=== PATIENT | female | born 1960 | race Caucasian/White ===

== ENCOUNTER 2020-04-06 08:10 | Emergency (ER) | payer MEDICARE ==
[~2020-04-06] VITALS: Ht 162.6 cm; Wt 86.5 kg
[~2020-04-06 08:10] MED LIST: AMLO5TAB4 PO; CLON1TAB11 PO; GABA800T5 PO; INSU100I11 SQ; INSU100V8 SQ; LEVO150T PO; LISI40TA PO; MIRT45TA57 PO; PARO40TA61 PO; ROSU40TA PO
[2020-04-06 09:12] LABS: MEAN CORPUSCULAR HGB CONC 34.1 g/dL (32.4-35.8); MEAN PLATELET VOLUME 8.9 fL (7.4-10.4); PLATELET COUNT 213 x10^3/uL (130-400); RED BLOOD COUNT 3.47 x10^6/uL (3.82-5.3); RED CELL DISTRIBUTION WIDTH 13.6 % (9.6-15.2)
[2020-04-06 09:21] LABS: INTERNATIONAL NORMALIZED RATIO 0.89 (0.93-1.1); PROTHROMBIN TIME 9.4 Seconds (9.6-11.5)
[2020-04-06 09:22] LABS: ALANINE AMINOTRANSFERASE 14 U/L (12-78); ALBUMIN 3.2 g/dL (3.4-5.0); ANION GAP 5 mmol/L (5-15); CALCIUM 10.3 mg/dL (8.5-10.1); CHLORIDE 114 mmol/L (98-107); CREATININE 2.08 mg/dL (0.55-1.02)
[2020-04-06 09:24] LABS: ALKALINE PHOSPHATASE 149 U/L (45-117); BILIRUBIN,TOTAL 0.2 mg/dL (0.2-1.0); TOTAL PROTEIN 6.7 g/dL (6.4-8.2)
[2020-04-06 09:46] LABS: MD YES
[2020-04-06 09:52] LABS: <PLATELET ESTIMATE> ADEQUATE; <PLT MORPHOLOGY> NORMAL PLT MORPH; <RBC MORPHOLOGY> NORMAL; BAND#(MANUAL) 0.06 x10^3/uL; BANDS%(MANUAL) 1 % (0-7); BASOS#(MANUAL) 0.06 x10^3/uL (0-0.1); BASOS% (MANUAL) 1 % (0-1); EOS#(MANUAL) 0.18 x10^3/uL (0.0-0.4); EOS% (MANUAL) 3 % (1-7); LYMPH#(MANUAL) 0.94 x10^3/uL (1-3.4); LYMPHS% (MANUAL) 16 % (22-44); MONOS% (MANUAL) 5 % (2-9); SEG#(MANUAL) 4.37 x10^3/uL (1.8-6.8); SEGS% (MANUAL) 74 % (42-75)
--- NOTE | 2020-04-06 10:45 | NUR ---
Late entry summary note: Pt reports aphasia and dropping things due to right sided weakness on Wednesday. Pt was not seen on Wednesday for this. Reports "today's my best day" since Wednesday, she comes to the ER today because symptoms haven't resolved. Pt reports right upper extremity numbness/ tingling. Righ sided weakness noted on exam. Pt passed RN bedside swallow eval. Pt connected to all monitors. NADN, call light in reach.
[2020-04-06] MEDS ORDERED: ASPIRIN 325 MG TABLET PO STA (10:48)
--- NOTE | 2020-04-06 10:55 | NUR ---
Pt ambulatory to bathroom with steady gait.
[2020-04-06] MEDS ORDERED: ASPIRIN 325 MG TABLET ONE (10:57)
[2020-04-06] MEDS ORDERED: ACETAMINOPHEN 325 MG TABLET PO PRN (11:30)
[2020-04-06] MEDS ORDERED: ONDANSETRON 2MG/ML, 2ML IVPush PRN (11:30)
[2020-04-06] MEDS ORDERED: CYCLOBENZAPRINE 10 MG TABLET PO PRN (11:30)
[2020-04-06] MEDS ORDERED: TRAZODONE 50MG TABLET PO PRN (11:30)
[2020-04-06] MEDS ORDERED: ENALAPRILAT 1.25 MG/ML, 2ML IVPush PRN (11:30)
[2020-04-06] MEDS ORDERED: ONDANSETRON ODT 4 MG PO PRN (11:30)
--- NOTE | 2020-04-06 12:36 | NUR ---
PT TO IMAGING.
--- NOTE | 2020-04-06 12:53 | NUR ---
Report to ROMULO Wallace. Pt remains in imaging.
[2020-04-06] MEDS ORDERED: GADOTERATE 10 MMOL/20 ML VIAL ONE (13:01)
--- NOTE | 2020-04-06 13:57 | NUR ---
PT'S DAUGHTER [phone]. OKAY TO CALL HER WITH UPDATES.
[2020-04-06] MEDS ORDERED: INSULIN LISPRO 100 UNITS/ML, PEN SQ-INSULIN SCH (16:00)
--- NOTE | 2020-04-06 16:13 | NUR ---
PT WISHES TO LEAVE AMA. PT IS A&O X4. WILL UPDATE .
--- NOTE | 2020-04-06 16:26 | NUR ---
PT SIGNED AMA FORM, DR. AMES AWARE. CALL TO PT'S DAUGHTER PER PT REQUEST FOR RIDE HOME.
[2020-04-06 16:27] VITALS: BP 159/78
--- NOTE | 2020-04-06 16:52 | NUR ---
PT PICKED UP BY DAUGHTER AND LEFT AMA.
[2020-04-06] MEDS ORDERED: FAMOTIDINE 20 MG TABLET PO SCH (21:00)
[2020-04-06] MEDS ORDERED: ATORVASTATIN 40 MG TABLET PO SCH (21:00)
[2020-04-07] MEDS ORDERED: LEVOTHYROXINE 150 MCG TABLET PO SCH (06:00)
[2020-04-07] MEDS ORDERED: ASPIRIN 325 MG TABLET EC PO SCH (06:00)
[2020-04-07] MEDS ORDERED: SENNA/DOCUSATE TABLET PO SCH (09:00)
[2020-04-07] MEDS ORDERED: LISINOPRIL 40 MG TABLET PO SCH (09:00)
[2020-04-07] MEDS ORDERED: AMLODIPINE 5 MG TABLET PO SCH (09:00)
[2020-04-07] MEDS ORDERED: CLOPIDOGREL 75 MG TABLET PO SCH (09:00)
== END 2020-04-06 16:59 | disposition left against medical advice (07) ==
LOC: ED 09:12 → SUATTDRO 11:28 → EDIP 11:42 → UNDOADMIN 11:42 → ED 16:59
PROVIDERS: ATTEND Hospitalist
DX: I63.312 Cerebral infarction due to thrombosis of left middle cerebral artery (principal); I13.0 Hypertensive heart and chronic kidney disease with heart failure and stage 1 through stage 4 chronic kidney disease, or unspecified chronic kidney disease; I50.9 Heart failure, unspecified; N18.9 Chronic kidney disease, unspecified; E78.5 Hyperlipidemia, unspecified; Z86.39 Personal history of other endocrine, nutritional and metabolic disease
CPT/HCPCS: 36415; 70450; 70553; 80053; 80320; 85025; 85610; 85730; 93005; 93306; 93880; 99285; A9575; G0480

== ENCOUNTER 2020-07-27 11:01 | Inpatient (IN) | payer MEDICARE, MEDICAID ==
[~2020-07-27] VITALS: Ht 162.6 cm; Wt 86.9 kg
[~2020-07-27 11:01] MED LIST changes: -LISI40TA PO; +LISI40TA9 PO
--- NOTE | 2020-07-27 11:20 | NUR ---
at [facility] for exam. assessment director completed. Pt changed into gown and placed on full bedside monitor at this time.
[2020-07-27] MEDS ORDERED: ALBUTEROL SULFATE 2.5MG/0.5ML NPPB ONE (11:30)
[2020-07-27] MEDS ORDERED: ALBUTEROL/IPRATROPIUM 2.5MG/0.5MG, 3 ML NEB ONE ×2 (11:30→13:30)
[2020-07-27] MEDS ORDERED: SODIUM CHLORIDE FLUSH 10ML SYR IVF ONE (11:30)
[2020-07-27] MEDS ORDERED: SODIUM CHLORIDE 0.9% 1,000ML IVBOLUS ONE (11:30)
[2020-07-27] MEDS ORDERED: methylPREDNISolone SOD SUCC 125 MG/2 ML IV ONE (11:30)
[2020-07-27] MEDS ORDERED: ALBUTEROL/IPRATROPIUM 2.5MG/0.5MG, 3 ML ONE ×2 (11:34→13:19)
[2020-07-27] MEDS ORDERED: methylPREDNISolone SOD SUCC 125 MG/2 ML ONE (11:34)
[2020-07-27 11:39] LABS: BASOPHILS % (AUTO) 1 % (0-1); EOSINOPHILS % (AUTO) 2 % (1-7); LYMPHOCYTES % (AUTO) 11 % (22-44); MEAN CORPUSCULAR HEMOGLOBIN 29.2 pg (27.0-34.8); MEAN CORPUSCULAR HGB CONC 34.1 g/dL (32.4-35.8); MEAN PLATELET VOLUME 8.4 fL (7.4-10.4); MONOCYTES % (AUTO) 6 % (2-9); NEUTROPHILS % (AUTO) 79 % (42-75); PLATELET COUNT 232 x10^3/uL (130-400); RED CELL DISTRIBUTION WIDTH 14.3 % (9.6-15.2)
[2020-07-27 11:44] LABS: MD NO
[2020-07-27 11:49] LABS: ALANINE AMINOTRANSFERASE 20 U/L (12-78); ALBUMIN 2.8 g/dL (3.4-5.0); ANION GAP 4 mmol/L (5-15); CALCIUM 9.9 mg/dL (8.5-10.1); CHLORIDE 109 mmol/L (98-107); CREATININE 2.19 mg/dL (0.55-1.02)
--- NOTE | 2020-07-27 11:49 | NUR ---
TASK RN, FS GLUCOSE 230.
[2020-07-27 11:53] LABS: ALKALINE PHOSPHATASE 214 U/L (45-117); BILIRUBIN,TOTAL 0.4 mg/dL (0.2-1.0); TOTAL PROTEIN 6.7 g/dL (6.4-8.2); TROPONIN I < 0.015 ng/mL (0.000-0.045)
[2020-07-27] MEDS ORDERED: ALBUTEROL SULFATE 2.5MG/0.5ML ONE (11:55)
--- NOTE | 2020-07-27 12:00 | NUR ---
NS 500mL bolus up and running well. Albuterol NPPB tx being administered now. at bedside for reassessment of lung sounds after Duoneb NPPB tx now with some improvement verbalized.
--- NOTE | 2020-07-27 12:15 | NUR ---
Pt request for bedpan, able to assist with getting on bedpan and then had very large formed brown stool and moderate amount uop present. Pericare completed and bed wilson cleaned in dirty utility and then returned to bedside for future use.
--- NOTE | 2020-07-27 12:28 | NUR ---
IV bolus completed and site saline locked. Pt drowsy but easily awakens. VS reassessed. Remain hypertensive with SpO2 90-93% on 5L/min O2.
--- NOTE | 2020-07-27 12:39 | NUR ---
Pt uncomfortable in increasing respiratory distress. Repositioned in bed, O2 increased to 6L/min NC without effect and noted decreasing sats to 87%. Increased work of breathing noted. Oxymask at 12L/min applied with sat increasing only to 89-90%, so increased again to 15L/min with good effect noted in sat (96%) but continued increased work of breathing present. MD notified and aware of possible need for BiPAP to support breathing.
[2020-07-27] MEDS ORDERED: LORazepam 2 MG/ML, 1ML ONE (13:20)
[2020-07-27] MEDS ORDERED: MORPHINE SULFATE 4 MG/ML, 1ML ONE (13:27)
[2020-07-27] MEDS ORDERED: HYDROmorphone 1 MG/ML, 1ML INJ ONE (13:29)
--- NOTE | 2020-07-27 13:31 | NUR ---
RT at bedside to start pt on BiPAP now. Pt tolerating well. Pt states allergies to Ativan and Morphine, so Dilaudid ordered for pt comfort by .
[2020-07-27] MEDS ORDERED: HYDROmorphone 1 MG/ML, 1ML INJ IV ONE ×2 (14:00→14:30)
[2020-07-27] MEDS ORDERED: AZITHROMYCIN 500 MG in SODIUM CHLORIDE 0.9% 250 ML IV ONE (14:00)
--- NOTE | 2020-07-27 14:19 | NUR ---
Pt states she feels much more comfortable with BIPAP in use now. IV abx started via IV site and blood and plasma laboratory assistant present for multiple lab draws with BC x2 already drawn. Hospitalist at bedside for assessment now. ICU bed request noted.
--- NOTE | 2020-07-27 14:28 | NUR ---
Woods Boss MD at bedside for assessment as well.
[2020-07-27] MEDS ORDERED: LABETALOL 5MG/ML, 20ML IVPush PRN (15:00)
[2020-07-27] MEDS ORDERED: DOCUSATE 100 MG CAPSULE PO PRN (15:00)
[2020-07-27] MEDS ORDERED: MELATONIN 5 MG TABLET PO PRN (15:00)
[2020-07-27] MEDS ORDERED: ONDANSETRON 2MG/ML, 2ML IVPush PRN (15:00)
[2020-07-27] MEDS ORDERED: hydrALAzine 20 MG/ML, 1ML IVPush PRN (15:00)
[2020-07-27] MEDS ORDERED: GUAIFENESIN/DM 200-20MG, 10ML UDC PO PRN (15:00)
[2020-07-27 15:17] LABS: FREE T4 (FREE THYROXINE) 1.52 ng/dL (0.76-1.46); TROPONIN I < 0.015 ng/mL (0.000-0.045)
--- NOTE | 2020-07-27 15:24 | NUR ---
TASK RN, REPORT CALLED TO HENNY. PRIMARY NURSE BACK FROM BREAK, COMPLETES REPORT.
--- NOTE | 2020-07-27 15:30 | NUR ---
Report called to ROMULO Haro and medical laboratory technicians present with need for CT and then transport to CCU from there.
--- NOTE | 2020-07-27 15:37 | NUR ---
Pt taken with RN and zygl[employer] technician on monitor and oxymask at 15L/min O2 for CT and then transfer to room 552. Pt able to self transfer from [facility] to CT table and back with minimal increase in SOB noted, but needed assistance to transfer from [facility] to ICU bed. Bedside update given to RN and care transferred once in CCU.
[2020-07-27 15:49] LABS: C-REACTIVE PROTEIN, QUANT 7.4 mg/dL (0.02-0.49)
[2020-07-27] MEDS ORDERED: FUROSEMIDE 40 MG/4 ML ONE (16:14)
[2020-07-27] MEDS ORDERED: HEPARIN 5,000 UNITS/ML, 1ML ONE (16:15)
[2020-07-27] MEDS ORDERED: methylPREDNISolone SOD SUCC 40 MG/ML ONE (16:15)
[2020-07-27] MEDS ORDERED: NICOTINE 14MG/24 HR PATCH.TD24 ONE (16:15)
[2020-07-27] MEDS: NICOTINE 14MG/24 HR PATCH.TD24 TD SCH (16:18)
[2020-07-27] MEDS: HEPARIN 5,000 UNITS/ML, 1ML SQ SCH ×2 (16:18→23:23)
[2020-07-27] MEDS: methylPREDNISolone SOD SUCC 40 MG/ML IVPush SCH ×2 (16:18→21:00)
[2020-07-27] MEDS: FUROSEMIDE 40 MG/4 ML IV SCH (16:19)
[2020-07-27] MEDS ORDERED: ALBUTEROL/IPRATROPIUM 2.5MG/0.5MG, 3 ML INLINE PRN ×2 (16:30)
[2020-07-27] MEDS ORDERED: ALBUTEROL/IPRATROPIUM 2.5MG/0.5MG, 3 ML INLINE SCH (16:30)
[2020-07-27] MEDS: INSULIN GLARGINE 100 UNITS/ML, PEN SQ-INSULIN SCH ×2 (17:17→21:04)
[2020-07-27] MEDS: INSULIN LISPRO 100 UNITS/ML, PEN SQ-INSULIN SCH ×2 (17:18→21:06)
[2020-07-27 17:27] VITALS: BP 146/83
[2020-07-27] MEDS: ALBUTEROL/IPRATROPIUM 2.5MG/0.5MG, 3 ML INLINE SCH ×2 (18:00→22:00)
[2020-07-27] MEDS: CEFTRIAXONE 2 GM in DEXTROSE 5% 50 ML IVPB SCH (18:08)
[2020-07-27] MEDS ORDERED: ALPR1TAB2 PO (19:03)
[2020-07-27] MEDS: ALPRazolam 1MG TAB PO PRN ×2 (19:15→23:50)
[2020-07-27] MEDS: SODIUM CHLORIDE FLUSH 10ML SYR IVF SCH (20:50)
[2020-07-27] MEDS: ATORVASTATIN 80 MG TABLET PO SCH (21:03)
[2020-07-27] MEDS: GABAPENTIN 400 MG CAPSULE PO SCH (21:03)
[2020-07-27 21:14] LABS: TROPONIN I 0.021 ng/mL (0.000-0.045)
[2020-07-28 00:57] LABS: MICROSCOPIC AUTO
[2020-07-28] MEDS: methylPREDNISolone SOD SUCC 40 MG/ML IVPush SCH ×4 (03:06→20:54)
[2020-07-28 04:21] LABS: BASOPHILS % (AUTO) 1 % (0-1); EOSINOPHILS % (AUTO) 0 % (1-7); LYMPHOCYTES % (AUTO) 9 % (22-44); MEAN CORPUSCULAR HEMOGLOBIN 29.8 pg (27.0-34.8); MEAN CORPUSCULAR HGB CONC 34.5 g/dL (32.4-35.8); MEAN PLATELET VOLUME 8.8 fL (7.4-10.4); MONOCYTES % (AUTO) 2 % (2-9); NEUTROPHILS % (AUTO) 88 % (42-75); PLATELET COUNT 196 x10^3/uL (130-400); RED CELL DISTRIBUTION WIDTH 14.4 % (9.6-15.2)
[2020-07-28 04:26] LABS: MD NO
[2020-07-28 04:31] LABS: ANION GAP 9 mmol/L (5-15); CALCIUM 10.1 mg/dL (8.5-10.1); CHLORIDE 107 mmol/L (98-107); CREATININE 2.22 mg/dL (0.55-1.02)
[2020-07-28] MEDS: ASPIRIN 81 MG TABLET EC PO SCH (05:45)
[2020-07-28] MEDS: ALPRazolam 1MG TAB PO PRN ×3 (05:51→23:20)
[2020-07-28] MEDS ORDERED: LEVOTHYROXINE 150 MCG TABLET PO SCH (06:00)
[2020-07-28] MEDS: ALBUTEROL/IPRATROPIUM 2.5MG/0.5MG, 3 ML INLINE SCH ×4 (06:50→18:52)
[2020-07-28] MEDS: GABAPENTIN 400 MG CAPSULE PO SCH ×2 (07:57→20:49)
[2020-07-28] MEDS: ACETAMINOPHEN 325 MG TABLET PO PRN (07:57)
[2020-07-28] MEDS: PAROXETINE 20 MG TABLET PO SCH (07:57)
[2020-07-28] MEDS: POTASSIUM CHLORIDE 20 MEQ TAB.ER.PRT PO SCH (08:05)
[2020-07-28] MEDS: PANTOPRAZOLE 40MG TABLET PO SCH (08:05)
[2020-07-28] MEDS: SODIUM CHLORIDE FLUSH 10ML SYR IVF SCH ×2 (08:59→20:52)
[2020-07-28] MEDS ORDERED: AMLODIPINE 5 MG TABLET PO SCH (09:00)
[2020-07-28] MEDS: FUROSEMIDE 40 MG/4 ML IV SCH ×2 (09:01→17:07)
[2020-07-28] MEDS: INSULIN LISPRO 100 UNITS/ML, PEN SQ-INSULIN SCH ×4 (09:02→21:08)
[2020-07-28] MEDS: INSULIN GLARGINE 100 UNITS/ML, PEN SQ-INSULIN SCH ×2 (09:03→21:07)
[2020-07-28] MEDS: HEPARIN 5,000 UNITS/ML, 1ML SQ SCH ×2 (09:04→17:07)
[2020-07-28] MEDS ORDERED: ZIPR80CA2 PO (09:55)
[2020-07-28] MEDS: AZITHROMYCIN 500 MG TABLET PO SCH (10:26)
[2020-07-28] MEDS ORDERED: DARBEPOETIN 60 MCG/ML SQ SCH (11:00)
[2020-07-28] MEDS ORDERED: ZIPRASIDONE 20MG CAPSULE PO PRN (11:00)
[2020-07-28] MEDS: NICOTINE 14MG/24 HR PATCH.TD24 TD SCH (15:20)
[2020-07-28 16:32] VITALS: BP 151/65
[2020-07-28 16:49] VITALS: BP 140/62
[2020-07-28] MEDS: CEFTRIAXONE 2 GM in DEXTROSE 5% 50 ML IVPB SCH (17:17)
[2020-07-28 17:35] VITALS: BP 134/59
[2020-07-28 19:04] VITALS: BP 148/63
[2020-07-28 19:45] VITALS: BP 123/57
[2020-07-28] MEDS: AMLODIPINE 5 MG TABLET PO SCH (20:48)
[2020-07-28] MEDS: ATORVASTATIN 80 MG TABLET PO SCH (20:50)
[2020-07-29] MEDS: HEPARIN 5,000 UNITS/ML, 1ML SQ SCH ×3 (00:41→16:21)
[2020-07-29] MEDS: methylPREDNISolone SOD SUCC 40 MG/ML IVPush SCH ×3 (03:10→15:57)
[2020-07-29 04:57] LABS: BASOPHILS % (AUTO) 0 % (0-1); EOSINOPHILS % (AUTO) 0 % (1-7); LYMPHOCYTES % (AUTO) 6 % (22-44); MEAN CORPUSCULAR HEMOGLOBIN 29.6 pg (27.0-34.8); MEAN CORPUSCULAR HGB CONC 34.3 g/dL (32.4-35.8); MONOCYTES % (AUTO) 4 % (2-9); NEUTROPHILS % (AUTO) 90 % (42-75); PLATELET COUNT 228 x10^3/uL (130-400); RED BLOOD COUNT 2.97 x10^6/uL (3.82-5.3); RED CELL DISTRIBUTION WIDTH 14.4 % (9.6-15.2)
[2020-07-29 05:01] LABS: ANION GAP 7 mmol/L (5-15); CALCIUM 10.5 mg/dL (8.5-10.1); CHLORIDE 110 mmol/L (98-107); CREATININE 2.22 mg/dL (0.55-1.02)
[2020-07-29 05:04] LABS: MD NO
[2020-07-29] MEDS: LEVOTHYROXINE 100 MCG TABLET PO SCH (05:53)
[2020-07-29] MEDS: ASPIRIN 81 MG TABLET EC PO SCH (05:53)
[2020-07-29] MEDS: PANTOPRAZOLE 40MG TABLET PO SCH (07:40)
[2020-07-29] MEDS: FUROSEMIDE 40 MG/4 ML IV SCH ×2 (07:40→16:20)
[2020-07-29] MEDS: ALBUTEROL/IPRATROPIUM 2.5MG/0.5MG, 3 ML INLINE SCH (08:00)
[2020-07-29] MEDS: INSULIN LISPRO 100 UNITS/ML, PEN SQ-INSULIN SCH ×4 (09:15→22:49)
[2020-07-29] MEDS: INSULIN GLARGINE 100 UNITS/ML, PEN SQ-INSULIN SCH ×2 (09:16→22:48)
[2020-07-29] MEDS: SODIUM CHLORIDE FLUSH 10ML SYR IVF SCH ×2 (09:16→22:59)
[2020-07-29] MEDS: MIRTAZAPINE 15 MG TABLET PO SCH (09:19)
[2020-07-29] MEDS: AZITHROMYCIN 500 MG TABLET PO SCH (09:19)
[2020-07-29] MEDS: AMLODIPINE 5 MG TABLET PO SCH ×2 (09:19→22:59)
[2020-07-29] MEDS: PAROXETINE 20 MG TABLET PO SCH (09:19)
[2020-07-29] MEDS: GABAPENTIN 400 MG CAPSULE PO SCH ×2 (09:20→22:45)
[2020-07-29] MEDS: POTASSIUM CHLORIDE 20 MEQ TAB.ER.PRT PO SCH (09:20)
[2020-07-29] MEDS ORDERED: ALBUTEROL/IPRATROPIUM 2.5MG/0.5MG, 3 ML INLINE PRN (11:00)
[2020-07-29] MEDS: ALBUTEROL-IPRATROPIUM MDI INH INH SCH ×3 (11:00→20:20)
[2020-07-29] MEDS: NICOTINE 14MG/24 HR PATCH.TD24 TD SCH (15:54)
[2020-07-29] MEDS: CEFTRIAXONE 2 GM in DEXTROSE 5% 50 ML IVPB SCH (16:20)
[2020-07-29] MEDS: ACETAMINOPHEN 325 MG TABLET PO PRN (20:22)
[2020-07-29 20:44] VITALS: BP 128/64
[2020-07-29 22:30] VITALS: BP 136/62
[2020-07-29] MEDS: ATORVASTATIN 80 MG TABLET PO SCH (22:46)
[2020-07-30] MEDS: HEPARIN 5,000 UNITS/ML, 1ML SQ SCH ×3 (02:01→17:13)
[2020-07-30 06:11] LABS: ANION GAP 8 mmol/L (5-15); CALCIUM 10.6 mg/dL (8.5-10.1); CHLORIDE 107 mmol/L (98-107); CREATININE 2.41 mg/dL (0.55-1.02)
[2020-07-30] MEDS: LEVOTHYROXINE 100 MCG TABLET PO SCH (06:39)
[2020-07-30] MEDS: ASPIRIN 81 MG TABLET EC PO SCH (06:39)
[2020-07-30] MEDS: methylPREDNISolone SOD SUCC 40 MG/ML IVPush SCH ×2 (06:39→17:13)
[2020-07-30] MEDS: ALBUTEROL-IPRATROPIUM MDI INH INH SCH ×4 (06:40→19:30)
[2020-07-30 07:11] VITALS: BP 184/69
[2020-07-30] MEDS: INSULIN LISPRO 100 UNITS/ML, PEN SQ-INSULIN SCH ×4 (07:34→21:16)
[2020-07-30] MEDS: FUROSEMIDE 40 MG TABLET PO SCH (08:32)
[2020-07-30] MEDS: POTASSIUM CHLORIDE 20 MEQ TAB.ER.PRT PO SCH (08:32)
[2020-07-30] MEDS: PANTOPRAZOLE 40MG TABLET PO SCH (08:32)
[2020-07-30] MEDS: INSULIN GLARGINE 100 UNITS/ML, PEN SQ-INSULIN SCH ×2 (08:32→21:16)
[2020-07-30] MEDS: AZITHROMYCIN 500 MG TABLET PO SCH (08:33)
[2020-07-30] MEDS: PAROXETINE 20 MG TABLET PO SCH (08:33)
[2020-07-30] MEDS: AMLODIPINE 5 MG TABLET PO SCH ×2 (08:33→21:15)
[2020-07-30] MEDS: GABAPENTIN 400 MG CAPSULE PO SCH ×2 (08:33→21:15)
[2020-07-30] MEDS: SODIUM CHLORIDE FLUSH 10ML SYR IVF SCH ×2 (08:34→21:16)
[2020-07-30 12:21] VITALS: BP 160/66
[2020-07-30] MEDS: NICOTINE 14MG/24 HR PATCH.TD24 TD SCH (14:23)
[2020-07-30] MEDS: CEFTRIAXONE 2 GM in DEXTROSE 5% 50 ML IVPB SCH (17:13)
[2020-07-30 17:59] LABS: OCCULT BLOOD POSITIVE (NEGATIVE)
[2020-07-30 18:30] VITALS: BP 162/67
[2020-07-30] MEDS: ATORVASTATIN 80 MG TABLET PO SCH (21:15)
[2020-07-31] MEDS: HEPARIN 5,000 UNITS/ML, 1ML SQ SCH ×2 (01:02→09:00)
[2020-07-31 02:11] VITALS: BP 160/78
[2020-07-31 05:19] LABS: MEAN CORPUSCULAR HEMOGLOBIN 29.3 pg (27.0-34.8); MEAN CORPUSCULAR HGB CONC 33.8 g/dL (32.4-35.8); MEAN PLATELET VOLUME 8.8 fL (7.4-10.4); PLATELET COUNT 309 x10^3/uL (130-400); RED BLOOD COUNT 3.68 x10^6/uL (3.82-5.3); RED CELL DISTRIBUTION WIDTH 14.4 % (9.6-15.2)
[2020-07-31] MEDS: LEVOTHYROXINE 100 MCG TABLET PO SCH (05:24)
[2020-07-31] MEDS: ASPIRIN 81 MG TABLET EC PO SCH (05:24)
[2020-07-31 05:29] LABS: ANION GAP 5 mmol/L (5-15); CALCIUM 10.4 mg/dL (8.5-10.1); CHLORIDE 106 mmol/L (98-107); CREATININE 2.16 mg/dL (0.55-1.02)
[2020-07-31 06:18] LABS: MD YES
[2020-07-31 06:20] LABS: BAND#(MANUAL) 0.09 x10^3/uL; BANDS%(MANUAL) 1 % (0-7); LYMPH#(MANUAL) 0.91 x10^3/uL (1-3.4); LYMPHS% (MANUAL) 10 % (22-44); METAMYELOCYTES# (MANUAL) 0.18 x10^3/uL (0-0); METAMYELOCYTES% (MANUAL) 2 % (0-1); MONOS#(MANUAL) 0.46 x10^3/uL (0.3-2.7); MONOS% (MANUAL) 5 % (2-9); MYELOCYTES# (MANUAL) 0.27 x10^3/uL (0-0); MYELOCYTES% (MANUAL) 3 % (0-0); SEG#(MANUAL) 7.19 x10^3/uL (1.8-6.8); SEGS% (MANUAL) 79 % (42-75)
[2020-07-31 06:21] LABS: <PLATELET ESTIMATE> ADEQUATE; <PLT MORPHOLOGY> NORMAL PLT MORPH; POLYCHROMASIA 1+
[2020-07-31 06:43] VITALS: BP 149/71
[2020-07-31] MEDS: ALBUTEROL-IPRATROPIUM MDI INH INH SCH (06:50)
[2020-07-31] MEDS: PANTOPRAZOLE 40MG TABLET PO SCH (07:25)
[2020-07-31] MEDS: INSULIN LISPRO 100 UNITS/ML, PEN SQ-INSULIN SCH (07:28)
[2020-07-31] MEDS ORDERED: LEVO100T PO (07:45)
[2020-07-31] MEDS ORDERED: FURO40TA6 PO (07:45)
[2020-07-31] MEDS ORDERED: PANT40TA6 PO (07:45)
[2020-07-31] MEDS ORDERED: PRED20TA PO (07:45)
[2020-07-31] MEDS ORDERED: ALBU8.5H8 PO (07:45)
[2020-07-31] MEDS ORDERED: POTA20TA6 PO (07:45)
[2020-07-31] MEDS ORDERED: IPRA3AMP30 NEB (07:45)
[2020-07-31] MEDS: AMLODIPINE 5 MG TABLET PO SCH (08:57)
[2020-07-31] MEDS: FUROSEMIDE 40 MG TABLET PO SCH (08:58)
[2020-07-31] MEDS: MIRTAZAPINE 15 MG TABLET PO SCH (08:58)
[2020-07-31] MEDS: POTASSIUM CHLORIDE 20 MEQ TAB.ER.PRT PO SCH (08:59)
[2020-07-31] MEDS: PAROXETINE 20 MG TABLET PO SCH (08:59)
[2020-07-31] MEDS: AZITHROMYCIN 500 MG TABLET PO SCH (08:59)
[2020-07-31] MEDS ORDERED: LISINOPRIL 40 MG TABLET PO SCH (09:00)
[2020-07-31] MEDS: SODIUM CHLORIDE FLUSH 10ML SYR IVF SCH (09:00)
[2020-07-31] MEDS: GABAPENTIN 400 MG CAPSULE PO SCH (09:00)
[2020-07-31] MEDS: INSULIN GLARGINE 100 UNITS/ML, PEN SQ-INSULIN SCH (09:14)
== END 2020-07-31 10:45 | disposition home or self-care (01) | DRG 193 ==
LOC: ED 12:35 → EDIP 13:59 → CCU 15:47 → 4WST 07-29 16:13 → DCLOUNGE 07-31 10:31
PROVIDERS: ADMIT Hospitalist; ATTEND Hospitalist
PROC: 5A09357 Assistance with Respiratory Ventilation, Less than 24 Consecutive Hours, Continuous Positive Airway Pressure (ICD-10-PCS; 2020-07-27)
PROC: 30233N1 Transfusion of Nonautologous Red Blood Cells into Peripheral Vein, Percutaneous Approach (ICD-10-PCS; principal; 2020-07-28)
PROC: 5A09357 Assistance with Respiratory Ventilation, Less than 24 Consecutive Hours, Continuous Positive Airway Pressure (ICD-10-PCS; 2020-07-28)
PROC: 5A0935A Assistance with Respiratory Ventilation, Less than 24 Consecutive Hours, High Flow/Velocity Cannula (ICD-10-PCS; 2020-07-29)
PROC: 5A09357 Assistance with Respiratory Ventilation, Less than 24 Consecutive Hours, Continuous Positive Airway Pressure (ICD-10-PCS; 2020-07-29)
DX: J18.9 Pneumonia, unspecified organism (principal); J96.21 Acute and chronic respiratory failure with hypoxia; I50.33 Acute on chronic diastolic (congestive) heart failure; J96.22 Acute and chronic respiratory failure with hypercapnia; J44.1 Chronic obstructive pulmonary disease with (acute) exacerbation; N18.4 Chronic kidney disease, stage 4 (severe); I13.0 Hypertensive heart and chronic kidney disease with heart failure and stage 1 through stage 4 chronic kidney disease, or unspecified chronic kidney disease; J44.0 Chronic obstructive pulmonary disease with (acute) lower respiratory infection; Z20.822 Contact with and (suspected) exposure to COVID-19; E11.22 Type 2 diabetes mellitus with diabetic chronic kidney disease; E11.51 Type 2 diabetes mellitus with diabetic peripheral angiopathy without gangrene; E03.9 Hypothyroidism, unspecified; F31.9 Bipolar disorder, unspecified; D64.9 Anemia, unspecified; F17.210 Nicotine dependence, cigarettes, uncomplicated; E78.5 Hyperlipidemia, unspecified; Z90.710 Acquired absence of both cervix and uterus; Z86.73 Personal history of transient ischemic attack (TIA), and cerebral infarction without residual deficits; Z79.4 Long term (current) use of insulin; Z88.8 Allergy status to other drugs, medicaments and biological substances; Z79.899 Other long term (current) drug therapy; Z99.81 Dependence on supplemental oxygen; Z79.82 Long term (current) use of aspirin; Z88.6 Allergy status to analgesic agent
CPT/HCPCS: 36415; 36600; 71045; 71250; 80048; 80053; 81001; 82272; 82607; 82728; 82803; 82962; 83036; 83540; 83550; 83615; 83735; 83880; 84100; 84145; 84439; 84443; 84484; 85025; 86140; 86850; 86900; 86923; 87040; 87081; 93005; 94640; 94660; 96361; 96374; G0378; J0456; J0696; J0881; J1170; J1644; J1940; J1815; J2920; J2930; J7030; J7050; J7512; P9016; U0003